=== PATIENT | female | born 1990 | race Caucasian/White ===

== ENCOUNTER 2016-07-21 17:12 | Emergency (ER) | payer SELFPAY ==
[~2016-07-21] VITALS: Wt 135.0 kg
[2016-07-21] MEDS ORDERED: SODIUM CHLORIDE 0.9% 1L BAG IV* STA (17:25)
[2016-07-21] MEDS ORDERED: ACETAMINOPHEN 650 MG SUPP PR STA (17:25)
[2016-07-21 17:44] LABS: URINE BLOOD (Dip) POC Negative (NEGATIVE)
[2016-07-21 17:55] LABS: BASOPHILS % 0.2 % (0.0-2.0); EOSINOPHILS % 0.2 % (0.0-7.0); HEMATOCRIT 43.2 % (37.0-47.0); HEMOGLOBIN 14.8 g/dl (12.0-16.0); LYMPHOCYTES # 2.4 10^3/ul (0.8-2.9); LYMPHOCYTES % 12.7 % (15.0-51.0); MEAN CORPUSCULAR HEMOGLOBIN 27.7 pg (29.0-33.0); MEAN CORPUSCULAR HGB CONC 34.2 g/dl (32.0-37.0); MEAN CORPUSCULAR VOLUME 81.1 fl (82.0-101.0); MEAN PLATELET VOLUME 9.6 fl (7.4-10.4); MONOCYTE # 1.2 10^3/ul (0.3-0.9); MONOCYTES % 6.3 % (0.0-11.0); NEUTROPHIL # 14.9 10^3/ul (1.6-7.5); NEUTROPHILS % 80.6 % (39.0-77.0); PLATELET COUNT 300 10^3/UL (140-440); RED BLOOD COUNT 5.32 10^6/ul (4.20-5.40); RED CELL DISTRIBUTION WIDTH 14.1 % (11.5-14.5); UNCORRECTED WBC 18.5 10^3/ul (4.8-10.8); WHITE BLOOD COUNT 18.5 10^3/ul (4.8-10.8)
[2016-07-21 17:57] LABS: ADD UMIC NO; URINE BILIRUBIN (Dip) NEGATIVE (NEGATIVE); URINE BLOOD (Dip) NEGATIVE (NEGATIVE); URINE COLOR LT. YELLOW (YELLOW); URINE GLUCOSE (Dip) NEGATIVE (NEGATIVE); URINE KETONES (Dip) TRACE (NEGATIVE); URINE LEUKOCYTE ESTERASE (Dip) NEGATIVE (NEGATIVE); URINE NITRITE (Dip) NEGATIVE (NEGATIVE); URINE TOTAL PROTEIN (Dip) NEGATIVE (NEGATIVE); URINE UROBILINOGEN (Dip) 0.2 E.U./dL (0.1-1.0)
[2016-07-21 17:58] LABS: CONDITION 1; LH ANALYZER COMMENTS 1
[2016-07-21 18:04] LABS: ALBUMIN 4.3 g/dl (3.3-4.9)
--- NOTE | 2016-07-21 18:04 | RADRPT ---
PROCEDURE: XR Chest. CLINICAL INDICATION: Sepsis TECHNIQUE: Chest AP portable. COMPARISON: No comparison available. FINDINGS: The mediastinal structures are unremarkable. The heart is normal in size and configuration. The pu lmonary vascularity is normal. There are low lung volumes. No consolidation is identified. The pl eural spaces are unremarkable. The axial skeleton is unremarkable. IMPRESSION: No active intrathoracic disease. RPTAT: [facility] .Arnaldo Manzo MD, MD Date Time Electronically viewed and signed by .Arnaldo Manzo MD, MD on 07/21/2016 18:03 .B/
[2016-07-21 18:05] LABS: CHLORIDE 98 mmol/L (97-110); POTASSIUM 4.2 mmol/L (3.5-5.1); SODIUM 138 mmol/L (135-144)
[2016-07-21 18:07] LABS: ANION GAP 18 (8-16); ASPARTATE AMINO TRANSFERASE 34 IU/L (15-46); BILIRUBIN,INDIRECT 0.4 mg/dl (0-1.1); BILIRUBIN,TOTAL 0.4 mg/dl (0.2-1.3); CARBON DIOXIDE 26 mmol/L (21-31); CREATININE 0.66 mg/dl (0.44-1.00); INR 0.97; PROTIME 12.9 Sec (12.2-14.2)
[2016-07-21 18:08] LABS: ALANINE AMINOTRANSFERASE 42 IU/L (13-69); ALKALINE PHOSPHATASE 87 IU/L (42-121); BLOOD UREA NITROGEN 12 mg/dl (7-20); CALCIUM 9.5 mg/dl (8.4-10.2); GLUCOSE 106 mg/dl (70-220); PARTIAL THROMBOPLASTIN TIME 31.1 Sec (25.0-35.0); TOTAL PROTEIN 8.2 g/dl (6.1-8.1)
[2016-07-21] MEDS ORDERED: LORAZEPAM 2 MG INJ IV ONE ×2 (18:30→19:00)
[2016-07-21 18:53] LABS: TROPONIN-I < 0.012 ng/ml (0.00-0.12)
[2016-07-21] MEDS ORDERED: OSELTAMIVIR 75 MG CAP PO ONE (19:00)
[2016-07-21] MEDS ORDERED: IBUPROFEN 800 MG TAB PO ONE (19:00)
--- NOTE | 2016-07-21 20:53 | ERD ---
ER Documentation Chief Complaint Date/Time DATE: 07/21/16 TIME: 20:50 Chief Complaint SYNCOPAL EPISODE 1 HR SPRING ENCASER. TACHYPNEIC. FEVER HIGH. NO TRAUMA HPI This is a 26-year-old female presents to the emergency room for evaluation of a syncopal episode which occurred 1 hour prior to arrival in the emergency room. This patient was found to be febrile tachycardic at triage. The patient is unable to give a detailed history at this time secondary to her clinical condition. Her boyfriend is at bedside and states that the patient has no medical problems and is not at her baseline mental status at this time ROS All systems reviewed and are negative except as per history of present illness. Medications Home Meds No Active Prescriptions or Reported Meds Allergies Allergies: Coded Allergies: No Known Allergy (Unverified , 07/21/16) PMhx/Soc Medical and Surgical Hx: Unable to obtain Hx Alcohol Use: No Hx Substance Use: No Hx Tobacco Use: No Smoking Status: Unknown if ever smoked Physical Exam Vitals Vital Signs Date Time Temp Pulse Resp B/P Pulse Ox O2 Delivery O2 Flow Rate FiO2 07/21/16 20:14 98.4 98 18 119/67 100 Room Air 07/21/16 19:06 93 18 131/64 98 07/21/16 18:10 98.0 07/21/16 17:21 Nasal Cannula 2 07/21/16 17:19 103.2 111 20 160/65 99 Physical Exam INITIAL VITAL SIGNS: Reviewed by me GENERAL: The patient is well developed, mild distress, warm to touch HEENT: Dry mucous membranes, pupils equal, round, and reactive to light. EOMI. There is no scleral icterus. NECK: C-spine is soft and supple, there is no meningismus. There is no cervical lymphadenopathy. LUNGS: Clear to auscultation bilaterally. There are no rales, wheezes or rhonchi. HEART: Tachycardic, no murmurs, clicks, rubs or gallops. ABDOMEN: Obese limiting exam, mild tenderness in the suprapubic region, otherwise soft, non-tender, non-distended. There are bowel sounds in all four quadrants. No rebound or guarding. EXTREMITIES: There is no peripheral cyanosis or edema. No focal swelling or erythema. NEUROLOGICAL: The patient moves all four extremities with 5/5 strength. Cranial nerves II - XII are intact. Normal gait. Alert and oriented SKIN: There is no apparent rash or petechiae. HEME/LYMPHATIC: There is no evidence of excessive bruising or lymphedema. PSYCHIATRIC: The patient does not appear anxious or depressed. Result Diagram: 07/21/16 1731 07/21/16 1731 Results 24 hrs Laboratory Tests Test 07/21/16 17:29 07/21/16 17:31 07/21/16 17:40 07/21/16 17:45 Bedside Glucose 102mg/dL Activated Partial Thromboplast Time 31.1Sec Alanine Aminotransferase (ALT/SGPT) 42IU/L Albumin 4.3g/dl Albumin/Globulin Ratio 1.10 Alkaline Phosphatase 87IU/L Anion Gap 18 Aspartate Amino Transf (AST/SGOT) 34IU/L Basophils # 0.010^3/ul Basophils % 0.2% Blood Morphology Comment Blood Urea Nitrogen 12mg/dl Calcium Level 9.5mg/dl Carbon Dioxide Level 26mmol/L Chloride Level 98mmol/L Creatinine 0.66mg/dl Direct Bilirubin 0.00mg/dl Eosinophils # 0.010^3/ul Eosinophils % 0.2% Globulin 3.90g/dl Glucose Level 106mg/dl Hematocrit 43.2% Hemoglobin 14.8g/dl INR International Normalized Ratio 0.97 Indirect Bilirubin 0.4mg/dl Lactic Acid Level 3.0mmol/L Lymphocytes # 2.410^3/ul Lymphocytes % 12.7% Mean Corpuscular Hemoglobin 27.7pg Mean Corpuscular Hemoglobin Concent 34.2g/dl Mean Corpuscular Volume 81.1fl Mean Platelet Volume 9.6fl Monocytes # 1.210^3/ul Monocytes % 6.3% Neutrophils # 14.910^3/ul Neutrophils % 80.6% Nucleated Red Blood Cells # 0.010^3/ul Nucleated Red Blood Cells % 0.0/100WBC Platelet Count 68712^3/UL Potassium Level 4.2mmol/L Prothrombin Time 12.9Sec Prothrombin Time Ratio 1.0 Red Blood Count 5.3210^6/ul Red Cell Distribution Width 14.1% Serum HCG, Qualitative NEGATIVE Sodium Level 138mmol/L Total Bilirubin 0.4mg/dl Total Protein 8.2g/dl Troponin I < 0.012ng/ml White Blood Count 18.510^3/ul Urine Bilirubin NEGATIVE Urine Clarity CLEAR Urine Color LT. YELLOW Urine Glucose NEGATIVE% Urine Hemoglobin NEGATIVE Urine Ketones TRACE Urine Leukocyte Esterase NEGATIVE Urine Nitrite NEGATIVE Urine Test NEGATIVE Urine Specific Larned 1.015 Urine Total Protein NEGATIVE Urine Urobilinogen 0.2 E.U./dL Urine pH 8.0 Bedside Urine Blood Negative Bedside Urine Glucose (UA) Negative Bedside Urine Ketones (LAB) Trace Bedside Urine Leukocyte Esterase (L Negative Bedside Urine Nitrite (LAB) Negative Bedside Urine Protein (LAB) Negative Bedside Urine pH (LAB) 8.5 Test 07/21/16 19:20 Lactic Acid Level 1.5mmol/L Current Medications Medications (Trade) Dose Ordered Sig/Christopher Route PRN Reason Start Time Stop Time Status Last Admin Dose Admin Sodium Chloride (NS) 4,190 ml BOLUS OVER 2 HOURS STAT IV* 07/21/16 17:25 07/21/16 17:26 07/21/16 17:37 Acetaminophen (Tylenol Supp) 650 mg ONCE STAT [place] 07/21/16 17:25 07/21/16 17:26 07/21/16 17:35 Lorazepam (Ativan) 1 mg ONCE ONCE IV 07/21/16 18:30 07/21/16 18:31 07/21/16 18:08 Oseltamivir Phosphate (Tamiflu) 75 mg ONCE ONCE PO 07/21/16 19:00 07/21/16 19:01 07/21/16 19:05 Ibuprofen (Motrin) 800 mg ONCE ONCE PO 07/21/16 19:00 07/21/16 19:01 07/21/16 19:06 Lorazepam (Ativan) 1 mg ONCE ONCE IV 07/21/16 19:00 07/21/16 19:01 Procedures/MDM EKG: Rate/Rhythm: Sinus tachycardia QRS, ST, T-waves: [No changes consistent w/ acute ischemia] Impression: [No evidence of ischemia or arrhythmia] Chest X-ray 1V Interpreted by me: Soft Tissue: No acute abnormalities Bones: No acute abnormalities Mediastinum/Cardiac Silhouette/Lungs: [No acute abnormalities] CT abdomen pelvis: Pending This 26-year-old female presents to the ER for evaluation of fever, altered mental status and tachycardia. When I evaluated her she was unable to give a history secondary to her clinical condition. She was not opening her eyes and after some verbal coaching the patient started to open her eyes. This patient had a septic workup started in the emergency room. She was found to be influenza A positive. She was given rectal Tylenol when she arrived due to the fact that she was febrile. When we reevaluated this patient she was afebrile, she is answering questions properly. She is a no 3. She is in no acute distress after receiving Tylenol, 4 L of fluid. The patient was given Motrin, and Tamiflu in the emergency room as well. She will be discharged home pending the results of her CAT scan. If the calcium results are negative she will be discharged home with a prescription for Motrin, Tamiflu. Departure Diagnosis: Primary Impression: Influenza A Additional Impressions: Syncope Lactic acidosis Condition: Stable AIDA MANN DO Jul 21, 2016 20:53
[2016-07-21] MEDS ORDERED: IBUP800T25 PO (20:54)
[2016-07-21] MEDS ORDERED: OSLT75C PO (20:54)
--- NOTE | 2016-07-21 21:09 | RADRPT ---
PROCEDURE: CT Abdomen and Pelvis without contrast. CLINICAL INDICATION: Pain. TECHNIQUE: CT scan of the abdomen and pelvis was performed on a multidetector slice CT scanner. N o intravenous contrast material was utilized. Sagittal and coronal reformatted images were obtained from the axial source images. Images were reviewed on a high-resolution PACS workstation. Exam CTDl vol = 22 mGy and DLP = 1381 Gy-cm. One of the following 3 dose reduction techniques were used: Auto mated exposure control; adjustment of the mA and/or kV according to patient size; or use of iterativ e reconstruction technique. COMPARISON: None. FINDINGS: There is no obstruction or ileus. The appendix is visualized and is normal in size. There is no ev idence for acute appendicitis. There is no evidence for diverticulitis. There is no free fluid. Th ere are nonspecific scattered sub centimeter mesenteric lymph nodes. The liver is enlarged and 19 cm length with diffuse hypodensity/fatty infiltration.. No intrahepati c lesions are identified. The gallbladder is normal in appearance. There is no definite biliary jason payton dilation. Pancreas is partially fatty replaced.. Spleen is unremarkable.. There are no adrena l masses. The aorta is normal caliber. Kidneys are normal in appearance without hydronephrosis, mass or calculus. Ureters are of normal ca liber. Brown catheters present within the partially contracted urinary bladder. There is likely rel ated gas within the urinary bladder. Uterus is unremarkable. Ovaries are not well characterized. The bones are unremarkable. Limited evaluation lung bases demonstrates a punctate right lower lobe calcification/granuloma. Bib asilar atelectasis. IMPRESSION: 1. No evidence for appendicitis or diverticulitis. 2. Enlarged fatty liver. No evidence for cholecystitis or biliary obstruction. 3. Partially fatty replaced pancreas. 4. Nonspecific sub centimeter mesenteric lymph nodes. 5. Brown catheter within the partially contracted urinary bladder. Gas within urinary bladder, lik klaus related to a Brown catheter. No obstructive uropathy. 6. Probable calcified granuloma right lower lobe. Mild bibasilar atelectasis. RPTAT: [facility]VK .José Donovan MD, MD Date Time Electronically viewed and signed by .José Donovan MD, on 07/21/2016 21:09 .K/
[2016-07-21 21:45] VITALS: BP 119/94; PULSE 101; RESP 18; TEMP 98.4
== END 2016-07-21 21:45 | disposition home or self-care (01) ==
LOC: E/R 17:12
DX: J10.1 Influenza due to other identified influenza virus with other respiratory manifestations (principal); R55 Syncope and collapse; E87.2 Acidosis
CPT/HCPCS: 36415; 51702; 71010; 74176; 80053; 81003; 82962; 83605; 84484; 84703; 85025; 85610; 85730; 87040; 87086; 87400; 93005; 96374; 99285; J2060; J7030